=== PATIENT | female | born 1960 | race Caucasian/White ===

== ENCOUNTER → 2018-07-02 | Outpatient (CLI) | payer BC ==
[~2018-07-02] MED LIST: CELEXA10 MG PO; DOXYCYCLINE 10100 MG PO; LISINOPRIL/HCTZ1 TA1 PO; LORTAB 5/500 501 TAB
== END ==
LOC: MC.RAD 10:30
DX: N63.10 Unspecified lump in the right breast, unspecified quadrant (principal); R92.1 Mammographic calcification found on diagnostic imaging of breast
CPT/HCPCS: G0279

== ENCOUNTER → 2022-04-30 | Outpatient (CLI) | payer BC ==
[~2022-04-30] VITALS: Ht 170.2 cm; Wt 89.3 kg
[~2022-04-30] MED LIST changes: +CRESTOR 10MG10 MG PO; +NORCO 325 MG-7.1 TAB PO; +RITALIN10 MG PO; +TOPROL XL100 MG PO; +WELLBUTRIN XL300 M1 PO; +XANAX .25M0.25 MG/TA PO
[2022-04-30 12:22] VITALS: BP 155/93; PULSE 59; TEMP 97.6
[2022-04-30 13:30] VITALS: BP 137/87; PULSE 64
== END ==
LOC: COL.RAD 11:51
DX: E04.1 Nontoxic single thyroid nodule (principal)